=== PATIENT | female | born 1995 | race African-American/Black ===

== ENCOUNTER 2017-09-21 08:06 | Emergency (ER) | payer OTHER ==
[2017-09-21 08:13] VITALS: BP 110/72; PULSE 69; TEMP 98.3; BMI 29.6
--- NOTE | 2017-09-21 08:35 | PDOC ---
History of Present Illness - General Chief Complaint: Cold Symptoms Stated Complaint: COUGH, SORE THROAT Time Seen by Provider: 09/21/17 08:18 History Source: Patient Exam Limitations: No Limitations - History of Present Illness Initial Comments: 09/21/17 09:42 Patient came to emergency department with complaints ofsore throat pain , runny nose with clear drainage, no fevers. Has been using OTC meds/ home remedies with minimal resolve Timing/Duration: reports: just prior to arrival Severity: reports: mild Past History - Travel Traveled outside of the country in the last 30 days: No Close contact w/someone who was outside of country & ill: No - Past Medical History Allergies/Adverse Reactions: Allergies Allergy/AdvReac Type Severity Reaction Status Date / Time No Known Allergies Allergy Verified 09/21/17 08:13 Home Medications: Ambulatory Orders Albuterol Sulfate Inhaler - [Ventolin HFA Inhaler -] 1 - 2 inh PO Q4H #1 inhaler 09/21/17 Asthma: No Cancer: No Cardiac Disorders: No COPD: No Diabetes: No HTN: No Seizures: No Thyroid Disease: No Other medical history: denies - Surgical History Abdominal Surgery: Yes (gastric sleeve, tummy tuck) - Immunization History Immunization Up to Date: Yes - Suicide/Smoking/Psychosocial Hx Smoking Status: No Smoking History: Never smoked Number of Cigarettes Smoked Daily: 0 Information on smoking cessation initiated: No Hx Alcohol Use: No Drug/Substance Use Hx: No Substance Use Type: None Hx Substance Use Treatment: No Respiratory Specific PMHX - Complaint Specific PMHX Angina: No Bronchitis: No Review of Systems - Review of Systems Able to Perform ROS?: Yes Is the patient limited Beninese proficient: Yes Constitutional: Yes: Symptoms Reported HEENTM: Yes: Symptoms Reported, See HPI, Nose Congestion, Throat Pain, Throat Swelling Respiratory: Yes: Symptoms reported, See HPI, Cough, Wheezing Musculoskeletal: Yes: Symptoms Reported Integumentary: Yes: Symptoms Reported, See HPI Neurological: Yes: Symptoms reported All Other Systems: Reviewed and Negative *Physical Exam - Vital Signs Last Vital Signs Temp Pulse Resp BP Pulse Ox 98.3 F 69 19 110/72 98 09/21/17 08:10 09/21/17 08:10 09/21/17 08:10 09/21/17 08:10 09/21/17 08:10 - Physical Exam General Appearance: Yes: Nourished, Appropriately Dressed, Apparent Distress, Mild Distress HEENT: positive: SANJEEV, Normal ENT Inspection, TMs Normal, Pharynx Normal, Nasal Congestion, Rhinorrhea (clear ), Sinus Tenderness Neck: positive: Supple, Lymphadenopathy (R), Lymphadenopathy (L). negative: Tender Respiratory/Chest: positive: Lungs Clear, Decreased Breath Sounds, Wheezing ( wirh d) Cardiovascular: positive: Regular Rhythm, Regular Rate Gastrointestinal/Abdominal: positive: Normal Bowel Sounds, Soft Musculoskeletal: positive: Normal Inspection Extremity: positive: Normal Capillary Refill Integumentary: positive: Normal Color, Dry, Warm, Pale Neurologic: positive: system programmer II-XII NML intact, Fully Oriented, Alert, Normal Mood/ Affect, Normal Response, Motor Strength 02/27 Progress Note - Progress Note Progress Note: some improvement after duoneb, will Rx Proventil Pump. Strep test negative, we will continue conservative measures as there is no evidence of bacterial infection and continue albuterol inhalers to help airway clearance *DC/Admit/Observation/Transfer Diagnosis at time of Disposition: Upper respiratory infection, viral - Discharge Dispostion Disposition: HOME Condition at time of disposition: Stable Admit: No - Referrals - Patient Instructions Printed Discharge Instructions: DI for Viral Upper Respiratory Infection -- Adult Additional Instructions: Rest, drink lots of fluids: Teas, water, soups, Pedialyte Saltwater gargles Steamy showers/seem to face break up mucus Avoid contact with others until fevers and cough resolved Lots of handwashing and good hygiene Continue [id number] medications for symptomatic relief Tylenol or Motrin for fever and pain Continue albuterol nebulizers every 4-6 hours for the next 2 days then as needed for continued cough Followup with private physician in one to 2 days Return to emergency department / pediatric hospital for worsened symptoms, fevers, dehydration - Post Discharge Activity Forms/Work/School Notes: Back to Work
[2017-09-21] MEDS ORDERED: ALBUTEROL SO4 2.5/IPRATROPIUM 0.5 INH SOL 3 ML VIAL.NEB. NEB ONE ×2 (08:50→08:53)
== END 2017-09-21 09:55 | disposition home or self-care (01) ==
LOC: JERFT 08:06
PROC: 3E0F7GC Introduction of Other Therapeutic Substance into Respiratory Tract, Via Natural or Artificial Opening (ICD-10-PCS; principal; 2017-09-21)
DX: J06.9 Acute upper respiratory infection, unspecified (principal); B97.89 Other viral agents as the cause of diseases classified elsewhere
CPT/HCPCS: 87070; 87430; 94640; 99281-25